=== PATIENT | male | born 1950 | race American Indian/Alaskan Native ===

== ENCOUNTER 2016-12-13 09:14 | Day surgery (SDC) | payer MEDICARE ==
[~2016-12-13 09:14] MED LIST: ANCEF/STERILE WATER 2 GM/20 ML 2 GM/20 ML SYRINGE IV NR; NACL 0.9% 1000 ML 1,000 ML IV SCH
[2016-12-13 10:54] LABS: Basophils % (Auto) 1.1 % (0.0-1.8); Eosinophils % (Auto) 4.1 % (0.0-4.3); Hematocrit 30.3 % (35.5-45.6); Hemoglobin 9.9 gm/dl (11.8-15.2); Mean Corpuscular HGB Conc 33 % (32-34); Mean Corpuscular Hemoglobin 30 pg (28-32); Mean Corpuscular Volume 90 fl (84-94); Platelet Count 116 K/mm3 (140-440); Red Blood Count 3.36 M/mm3 (3.65-5.03); Red Cell Distribution Width 15.2 % (13.2-15.2); White Blood Count 7.5 K/mm3 (4.5-11.0)
--- NOTE | 2016-12-13 11:10 | Anesthesia Consultation ---
Anesthesia Consult and Med Hx Date of service: 12/13/16 - Airway Anesthetic Teeth Evaluation: Poor ROM Head & Neck: Adequate Mental/Hyoid Distance: Adequate Mallampati Class: Class II Intubation Access Assessment: Probably Good - Pulmonary Exam CTA: Yes - Cardiac Exam Cardiac Exam: RRR - Pre-Operative Health Status ASA Pre-Surgery Classification: ASA3 Proposed Anesthetic Plan: General - Pulmonary Hx Smoking: Yes (1/2PPD FOR 12YRS) - Cardiovascular System Hx Hypertension: Yes (12YRS) - Endocrine Hx End Stage Renal Disease: Yes (2004)
[2016-12-13] MEDS ORDERED: NORMODYNE IV NR (11:11)
--- NOTE | 2016-12-13 11:11 | Anesthesia Day of Surgery ---
Anesthesia Day of Surgery - Day of Surgery Patient Examined: Yes Patient H&P Reviewed: Yes Patient is NPO: Yes Beta Blockers: Yes
[2016-12-13 11:12] LABS: BUN/Creatinine Ratio 4.32; Calcium 8.5 mg/dL (8.4-10.2); Chloride 97.7 mmol/L (98-107); Potassium 4.8 mmol/L (3.6-5.0)
[2016-12-13] MEDS ORDERED: DIPRIVAN 10 MG/ML IV ONE (11:56)
[2016-12-13] MEDS ORDERED: XYLOCAINE MPF 2% ONE (11:56)
[2016-12-13] MEDS ORDERED: SUBLIMAZE ONE (11:56)
[2016-12-13] MEDS ORDERED: ZOFRAN ONE (11:56)
[2016-12-13] MEDS ORDERED: NACL 0.9% 500 ML 500 ML ONE (13:06)
[2016-12-13] MEDS ORDERED: MARCAINE 0.5% 30 ML INFILTRATI ONE (13:07)
[2016-12-13] MEDS ORDERED: HEPARIN 10,000 UNITS/10 ML ONE ×2 (13:07→13:31)
[2016-12-13] MEDS ORDERED: HEPARIN 10,000 UNITS/10 ML IV ONE (13:23)
[2016-12-13] MEDS ORDERED: NACL 0.9% 500 ML IV ONE (13:24)
[2016-12-13] MEDS ORDERED: MARCAINE 0.5% INFILTRATI ONE (13:25)
--- NOTE | 2016-12-13 15:45 | Operative Report ---
Operative Report Operative Report: Operative note: Date: 12/13/2016 Preoperative diagnosis: Right radiocephalic AV fistula malfunction, 2 large pseudoaneurysms, multiple previous declots Postoperative diagnosis: Same. Operation: Revision of right AV fistula Surgeon: Olivia Brooks. Asst.: none Anesthesia: Gen. EBL: 50 mL Findings: Arterialized cephalic vein, and good size brachial artery Indications: 66-year-old gentleman with multiple previous declots of AV access including clotting and developed large pseudoaneurysm with clot containing lumen. Discussed surgical options and chose to have revision at this point at this point. He was explained the risks and benefits of procedure and chose to proceed Operative details: Patient was brought to the operating room and placed in supine position is right hand dominant hand table. He was prepped and draped in sterile fashion. Timeout was performed and all team members in agreement. Incision was created with a 15 blade about 1 cm below elbow and carried down with electrocautery. Initially I dissected around cephalic vein mobilizing, then dissected the brachial artery by dividing bicipital facia. Cephalic vein was transected distally and distal end was sutured using 5-0 prolene. It was irrigated with heparinized saline with olive-tipped syringe. Patient was heparinized with 3000u Heparin. Distal and proximal control for brachial artery was surrounded with vessel loops. Arteriotomy was created with 11 blade and extended with Pineda scissors. Anastomosis was created was running 6-0 Prolene. When the artery was opened we felt good thrill in the cephalic vein. Hemostasis was achieved with electrocautery and wound was closed in 2 layers with 3-0 Vicryl and 4-0 Monocryl. Dermabond glue applied. Then switched our attention to the distal part of previous AV fistula. We created an incision along the distal part of the injected beyond pseudoaneurysm. The vein was dissected with electrocautery and clamped with carotid clamp and an angled DeBakey vascular clamp. It was ligated distally and pseudoaneurysms decompressed through proximal. Incision was closed with 3- 0 Vicryl and 4-0 Monocryl and Dermabond was applied. Needle and sponge counts were correct 2. Patient tolerated procedure well and was transferred to PACU in stable condition.
--- NOTE | 2016-12-13 15:50 | Short Stay Summary ---
Short Stay Documentation Date of service: 12/13/16 - History H&P: obtained from office - Allergies and Medications Current Medications: Allergies No Known Allergies Allergy (Unverified 12/09/16 13:23) Home Medications Medication Instructions Recorded Confirmed Last Taken Type Cinacalcet HCl [Sensipar] 60 mg PO QDAY 12/09/16 12/13/16 12/12/16 History Clonidine HCl [Catapres] 0.3 mg PO QID 12/09/16 12/13/16 12/12/16 History Ergocalciferol (Vitamin D2) 2,000 unit PO DAILY 12/09/16 12/13/16 12/12/16 History [Vitamin D2] Labetalol [Normodyne] 200 mg PO BID 12/09/16 12/13/16 12/12/16 History Lisinopril [Zestril TAB] 30 mg PO BID 12/09/16 12/13/16 12/12/16 History Active Medications Cefazolin Sodium (Ancef/Sterile Water 2 Gm/20 Ml) 2 gm in 20 mls @ 80 mls/hr IV PREOP NR PRN Reason: Protocol Stop: 12/13/16 18:00 Sodium Chloride (Nacl 0.9% 1000 Ml) 1,000 mls @ 42 mls/hr IV DIRECT SHANDA Stop: 12/13/16 18:00 Last Admin: 12/13/16 10:30 Dose: 42 mls/hr - Disposition Condition at discharge: Good Disposition: DISCHARGED TO HOME OR SELFCARE Short Stay Discharge Plan Activity: advance as tolerated Weight Bearing Status: Weight Bear as Tolerated Diet: renal Wound: keep clean and dry Follow up with: ELIZABETH BISHOP DO [Staff Physician] - 14 Days Prescriptions: HYDROcodone/APAP 5-325 [[place] 5/325] 1 each PO Q6HR PRN #20 tablet PRN Reason: Pain
--- NOTE | 2016-12-13 16:00 | Post Anesthesia Evaluation ---
- Post Anesthesia Evaluation Patient Participated: Yes Airway Patent: Yes Stable Respiratory Function: Yes Nausea/Vomiting: No Temp > 96.8F: Yes Pain Manageable: Yes Adequeate Hydration: Yes Anesthesia Complications: No Block Receding Appropriately: Not Applicable Patient on Ventilator: No
[2016-12-13] MEDS ORDERED: NORCO 5/325 PO PRN (16:38)
[2016-12-13 16:41] VITALS: BP 149/74
--- NOTE | 2016-12-13 17:14 | Admit Criteria Form ---
Admission Criteria Documentation: AMBULATORY SURGERY EXCEPTION CRITERIA Ambulatory Surgery Exception Criteria ( Place 'X' for any and all applicable criteria): Surgery or procedure performed on ambulatory basis may require inpatient stay for[A] ANY ONE of the following(1)(2)(3)(4)(5)(6)(7)(8)(9): [X] I. A preoperative situation, condition, or finding that warrants inpatient stay as indicated by ANY ONE of the following: [] a) Inpatient care needed because of severity of a disease or condition rather than the surgery (eg, severe cardiac or respiratory disease, severe infection) (15) (16 ) (17) (18) [] b) Emergent procedure (eg, angioplasty for acute ischemia)(19) [] c) Complex surgical approach or situation as indicated by ANY ONE of the following(3): [] i) Open approach needed instead of usual endoscopic, transcatheter, or other less invasive procedure [] ii) Difficult approach because of previous operation [] iii) Airway monitoring required after open neck procedures(20)(21) [] iv) Large mass requiring unusually extensive dissection [] v) Additional complicating feature requiring inpatient care (eg, drain management)(22(23): [X] d) Major surgery in a pt with high anesthetic risk as indicated by ANY ONE of the following (2)(3)(5)(7)(8): [X] i) ASA risk class III or higher (severe systemic disease impairing function) [D] [] ii) Advanced age (eg, older than 85 years)(14)(24) [] iii) Symptomatic heart failure(25) [] iv) Symptomatic asthma or COPD(8)(21) [] v) Morbid obesity with hemodynamic or respiratory problems(20)( 21)(26)(27) [] vi) Obstructive sleep apnea(20)(21) [] vii) Former premature infants who are younger than 60 weeks [] viii) High risk for severe postoperative abnormalities (eg, severe postoperative hypocalcemia after parathyroidectomy for severe hyperparathyroidism)(27)( 28) [] ix) Unstable angina(25) [] e) Drug-related risk requiring inpatient stay as indicated by ANY ONE of the following(5)(10)(14)(32)(33) [] i) Procedure requires discontinuing drugs or other therapy (eg , antiarrhythmic medication, antiseizure medication), which necessitates inpatient observation or treatment.(18)(31) [] ii) Major surgery and high risk drug use as indicated by ANY ONE of the following: [] 1) Active abuse of cocaine or similar drug [] 2) Monoamine oxidase inhibitor use [] 3) Other drug identified as posing risk [] f) Inadequate outpatient care situation as indicated by ANY ONE of the following(5)(10)(14)(32)(33) [] i) Patient lives remote from medical facility and procedure has urgent complication potential, and temporary nearby residence cannot be arranged [] ii) Patient will have postprocedure incapacitation and inadequate assistance at home, or alternative level of care cannot be arranged. [] iii) Patient will have long general anesthesia or procedure side effect resolution time, and competent person to stay with patient on first postoperative night at home or alternative level of care cannot be arranged. []iv) Other inadequate outpatient situation that cannot be handled by other means [] II. A perioperative event, condition, or finding that warrants inpatient stay as indicated by ANY ONE of the following (1)(2)(3): [] a) Inadequate physiologic recovery: cardiovascular, respiratory, or hemodynamic status not normal or near preoperative baseline(18) [] b) Hemodynamic instability [] c) Patient not alert with near normal or baseline mental status [] d) Temperature not normal or as expected and not appropriate for outpatient treatment of condition [] e) Ambulatory or appropriate activity level status not yet achieved post procedure [E](34)(35)(36) [] f) Operative site not appropriate (eg, unexpected or excessive drainage or bleeding) [] g) Postoperative effects not resolved or adequately managed (eg, significant pain or vomiting not appropriate for outpatient or next level of care)(10)(12) [] h) Complicating features requiring inpatient care as indicated by ANY ONE of the following(37): [] i) Severe complications of procedure (eg, bowel injury, airway compromise, vascular injury,severe hemorrhage) [] ii) Extensive (eg, dissection far beyond usual scope of procedure ) or prolonged (eg, 120 minutes beyond usual) surgery needed requiring inpatient postoperative care [] iii) Conversion to an open or complex procedure that requires inpatient care (eg, open vs laparoscopic cholecystectomy, abdominal vs vaginal hysterectomy)(38) [] iv) Comorbid condition or test result identified during or post procedure that requires inpatient care (7) [] v) Malignant hyperthermia(30) [] vi) Other complicating feature requiring inpatient care(22)(23) Inpatient stay may be needed until ALL of the following are present (1)(2)(3)(4) (5)(6)(10)(14)(33)(40): []a) Physiologic recovery: cardiovascular, respiratory, and hemodynamic status normal or near preoperative baseline []b) Hemodynamic stability []c) Patient alert, with near normal or baseline mental status []d) Temperature appropriate: patient afebrile or temperature appropriate for outpt treatment of condition []e) Activity level appropriate: ambulatory or appropriate activity level post procedure []f) Operative site appropriate as indicated by ALL of the following: []i) Site dry or with expected drainage []ii) Any blood noted is as expected for procedure. []g) Postoperative effects resolved or managed as indicated by ALL of the following: []i) Pain management appropriate for outpatient (or next level of) care(10) []ii) Minimal nausea and vomiting: if present, successfully treated with oral medication(12) []iii) Headache, dizziness, or drowsiness (if present) are mild. []h) Voiding status acceptable as indicated by ANY ONE of the following: []i) Voiding spontaneously []ii) No voiding but instructions given for follow-up in 6 to 8 hours []iii) Urinary catheter in place, and instructions given for follow-up []i) Complicating features requiring inpatient care manageable at a lower level of care(37) []j) Comorbid conditions manageable at a lower level of care(37) The original [employer] content created by [employer] has been revised. The portions of the content which have been revised are identified through the use of italic text or in bold, and [facility] [employer] has neither reviewed nor approved the modified material. All other unmodified content is copyright [employer]. Please see references footnoted in the original [employer] edition 2016 Admission Criteria Met: Yes
== END 2016-12-13 09:15 | disposition home or self-care (01) ==
LOC: OR 09:14
PROVIDERS: ATTEND Surgery Vascular Surgery
DX: T82.590A Other mechanical complication of surgically created arteriovenous fistula, initial encounter (principal); I12.0 Hypertensive chronic kidney disease with stage 5 chronic kidney disease or end stage renal disease; N18.6 End stage renal disease; F17.210 Nicotine dependence, cigarettes, uncomplicated; Z98.890 Other specified postprocedural states; Z83.3 Family history of diabetes mellitus; Y83.2 Surgical operation with anastomosis, bypass or graft as the cause of abnormal reaction of the patient, or of later complication, without mention of misadventure at the time of the procedure
CPT/HCPCS: 36415; 36832; 80048; 85025; J0690; J1644; J2405; J2704; J3010; J7030; J7040